=== PATIENT | female | born 1975 | race African-American/Black ===

== ENCOUNTER 2018-11-12 12:41 | Emergency (ER) | payer OTHER ==
[2018-11-12 12:46] VITALS: BP 130/80; PULSE 103; TEMP 98.3; BMI 35.5
--- NOTE | 2018-11-12 13:08 | PDOC ---
History of Present Illness - General Chief Complaint: Back Pain Stated Complaint: BACK PAIN Time Seen by Provider: 11/12/18 13:07 History Source: Patient - History of Present Illness Occurred: reports: other Severity: reports: moderate Pain Location: reports: back Past History - Past Medical History Allergies/Adverse Reactions: Allergies Allergy/AdvReac Type Severity Reaction Status Date / Time peanut Allergy Verified 11/12/18 12:46 sulfamethoxazole Allergy Verified 11/12/18 12:46 [From Bactrim] trimethoprim [From Bactrim] Allergy Verified 11/12/18 12:46 Home Medications: Ambulatory Orders Hydrochlorothiazide [Hctz -] 12.5 mg PO DAILY 01/05/15 Cyclobenzaprine HCl [Flexeril -] 10 mg PO TID #9 tablet 10/09/16 Ibuprofen [Motrin -] 800 mg PO Q6H #30 tablet 10/09/16 Multivitamins [Tab-A-Vit -] 1 tab PO DAILY 10/09/16 Naproxen [Naprosyn -] 500 mg PO BID 10/09/16 Cyclobenzaprine HCl [Flexeril -] 10 mg PO TID #9 tablet 11/12/18 Ibuprofen [Motrin -] 800 mg PO Q6H #30 tablet 11/12/18 COPD: No HTN: Yes Other medical history: degenerative disc disease - Suicide/Smoking/Psychosocial Hx Smoking History: Never smoked Have you smoked in the past 12 months: Yes Number of Cigarettes Smoked Daily: 3 'Breaking Loose' booklet given: 10/09/16 Hx Alcohol Use: No Drug/Substance Use Hx: No Substance Use Type: None Trauma Specific PMHX - Complaint Specific PMHX Back Injury: No Neck Injury: No Review of Systems - Review of Systems ABD/GI: No: Abdominal cramping : No: Burning, Dysuria, Discharge, Frequency, Flank Pain, Hematuria Musculoskeletal: Yes: Back Pain Neurological: No: Numbness, Tingling, Weakness *Physical Exam - Vital Signs Last Vital Signs Temp Pulse Resp BP Pulse Ox 98.3 F 103 H 20 130/80 99 11/12/18 12:43 11/12/18 12:43 11/12/18 12:43 11/12/18 12:43 11/12/18 12:43 - Physical Exam General Appearance: Yes: Appropriately Dressed, Mild Distress HEENT: positive: Normal Voice Neck: positive: Supple Respiratory/Chest: negative: Respiratory Distress Gastrointestinal/Abdominal: positive: Soft. negative: Tender Musculoskeletal: positive: Vertebral Tenderness (to L lower back). negative: CVA Tenderness Integumentary: positive: Dry, Warm Neurologic: positive: Fully Oriented, Alert, Normal Mood/Affect Moderate Sedation - Procedure Monitoring Vital Signs: Procedure Monitoring Vital Signs Temperature 98.3 F 11/12/18 12:43 Pulse Rate 103 H 11/12/18 12:43 Respiratory Rate 20 11/12/18 12:43 Blood Pressure 130/80 11/12/18 12:43 O2 Sat by Pulse Oximetry (%) 99 11/12/18 12:43 Medical Decision Making - Medical Decision Making 11/12/18 13:09 43-year-old female, history of chronic back pain s/p remote work injury w/ degenerative disc" on MRI, decline PT in past, takes tylenol prn pain, here w/ worsening of her usual pain that re-occurred 3 days ago, usually affects R lower back, this time affecting L lower back, r/t L leg which is not new for pt. Worse w/ movement/weight bearing. No LE weakness, sensory changes, addle anesthesia or B/b incontinence. No sxs, n/v/f/c. Took tylenol w/ no relief per pt see exam Acute on chronic LBP No red flags at this time -dose of toradol gven -dc w/ pain control and PMD f/u 11/12/18 13:21 *DC/Admit/Observation/Transfer Diagnosis at time of Disposition: Low back pain Qualifiers: Chronicity: unspecified Back pain laterality: left Sciatica presence: without sciatica Qualified Code(s): M54.5 - Low back pain - Discharge Dispostion Disposition: HOME Condition at time of disposition: Good - Referrals Referrals: Karel Pascal MD [Primary Care Provider] - - Patient Instructions Printed Discharge Instructions: DI for Low Back Pain Additional Instructions: Take medication as directed and follow with your PMD if pain persists - Post Discharge Activity Forms/Work/School Notes: Back to Work
[2018-11-12] MEDS ORDERED: KETOROLAC TROMETHAMINE 60 MG/2 ML VIAL IM ONE (13:12)
[2018-11-12] MEDS ORDERED: KETOROLAC TROMETHAMINE 60 MG/2 ML VIAL ONE (13:19)
== END 2018-11-12 13:22 | disposition home or self-care (01) ==
LOC: JERFT 12:41
PROC: 3E0233Z Introduction of Anti-inflammatory into Muscle, Percutaneous Approach (ICD-10-PCS; principal; 2018-11-12)
DX: M51.37 Other intervertebral disc degeneration, lumbosacral region (principal); M54.5 Low back pain; G89.29 Other chronic pain; I10 Essential (primary) hypertension
CPT/HCPCS: 96372; 99281-25